=== PATIENT | female | born 2000 | race Native Hawaiian/Other Pacific Islander ===

== ENCOUNTER 2022-09-21 05:33 | Emergency (ER) | payer BC ==
[~2022-09-21] VITALS: Ht 167.6 cm; Wt 93.0 kg
[2022-09-21 05:45] VITALS: BP 110/66; TEMP 98.9
[2022-09-21 06:52] LABS: PLATELET COUNT 283 K/uL (152-353)
== END 2022-09-21 07:15 | disposition home or self-care (01) ==
LOC: ED 05:33
PROVIDERS: Family Medicine
DX: L02.01 Cutaneous abscess of face (principal); R59.0 Localized enlarged lymph nodes
CPT/HCPCS: 36415; 85027; 87651; 99283

== ENCOUNTER 2022-09-26 17:51 | Emergency (ER) | payer BC ==
[~2022-09-26] VITALS: Ht 167.6 cm; Wt 93.0 kg
[2022-09-26 18:34] LABS: PLATELET COUNT 283 K/uL (152-353)
[2022-09-26 18:44] LABS: POTASSIUM 3.5 mmol/L (3.6-5.2)
[2022-09-26 20:00] VITALS: TEMP 98.1
[2022-09-26 23:00] VITALS: BP 125/78
== END 2022-09-26 23:00 | disposition still patient (30) ==
LOC: ED 17:51
PROVIDERS: Emergency Medicine
DX: R45.851 Suicidal ideations (principal); Z63.79 Other stressful life events affecting family and household; Z20.822 Contact with and (suspected) exposure to COVID-19
CPT/HCPCS: 36415; 80053; 80143; 80179; 80307; 80320; 81002; 81025; 85027; 87635; 99283; U0003